=== PATIENT | male | born 1995 | race Caucasian/White ===

== ENCOUNTER 2017-12-12 12:37 | Emergency (ER) | payer MEDICAID ==
[~2017-12-12] VITALS: Ht 162.6 cm; Wt 72.7 kg
[~2017-12-12 12:37] MED LIST: NO HOME MEDS
[2017-12-12] MEDS ORDERED: AMOX500C2 PO (13:04)
[2017-12-12 13:19] VITALS: BP 124/67
== END 2017-12-12 13:20 | disposition home or self-care (01) ==
LOC: ER 12:37
DX: K08.89 Other specified disorders of teeth and supporting structures (principal); F15.90 Other stimulant use, unspecified, uncomplicated; F11.90 Opioid use, unspecified, uncomplicated; Z79.899 Other long term (current) drug therapy
CPT/HCPCS: 99283

== ENCOUNTER 2018-01-13 21:10 | Emergency (ER) | payer MEDICAID ==
[~2018-01-13] VITALS: Ht 167.6 cm; Wt 72.7 kg
[2018-01-13 21:15] VITALS: BP 129/71
[2018-01-13] MEDS ORDERED: CefTRIAXone 250MG IM Kit w/LIDOcaine IM ONE (22:25)
[2018-01-13] MEDS ORDERED: azithromycin 250mg tablet PO ONE (22:25)
== END 2018-01-13 23:33 | disposition home or self-care (01) ==
LOC: ER 21:10
DX: A64 Unspecified sexually transmitted disease (principal); F15.90 Other stimulant use, unspecified, uncomplicated; F11.90 Opioid use, unspecified, uncomplicated; Z79.899 Other long term (current) drug therapy
CPT/HCPCS: 96372; 99283; J0696

== ENCOUNTER 2019-02-16 05:31 | Emergency (ER) | payer MEDICAID, OTHER ==
[~2019-02-16] VITALS: Ht 162.6 cm; Wt 77.3 kg
[2019-02-16 05:34] VITALS: BP 147/94
[2019-02-16] MEDS ORDERED: IBUP-1984 PO (06:08)
[2019-02-16] MEDS ORDERED: PENI500T2 PO (06:08)
[2019-02-16] MEDS ORDERED: ibuprofen tablet 400 MG TABLET PO ONE (06:10)
[2019-02-16] MEDS ORDERED: AMOX-422 PO (21:05)
[2019-02-16] MEDS ORDERED: HYDR-4353 PO (21:05)
== END 2019-02-16 06:21 | disposition home or self-care (01) ==
LOC: ER 05:32
DX: K02.9 Dental caries, unspecified (principal); F15.90 Other stimulant use, unspecified, uncomplicated; F11.90 Opioid use, unspecified, uncomplicated; Z79.2 Long term (current) use of antibiotics; Z79.899 Other long term (current) drug therapy
CPT/HCPCS: 99283

== ENCOUNTER 2019-02-16 19:49 | Emergency (ER) | payer MEDICAID, OTHER ==
[~2019-02-16] VITALS: Ht 162.6 cm; Wt 77.3 kg
[~2019-02-16 19:49] MED LIST changes: +IBUP-1984 PO; +PENI500T2 PO
[2019-02-16 19:55] VITALS: BP 148/101
[2019-02-16] MEDS ORDERED: naproxen 500mg tablet PO ONE (21:05)
[2019-02-16] MEDS ORDERED: HYDR-4353 PO (21:05)
[2019-02-16] MEDS ORDERED: LIDOcaine 1% w/EPI 1:200,000 injection 10mL vial IM ONE (21:05)
[2019-02-16] MEDS ORDERED: amox tr/potassium clavulanate 875/125mg TAB PO ONE (21:05)
[2019-02-16] MEDS ORDERED: AMOX-422 PO (21:05)
[2019-02-16] MEDS ORDERED: HYDROcodone/acetaminophen 10/325mg tab PO ONE (21:05)
[2019-02-16] MEDS ORDERED: LIDOcaine 1% W/epiNEPHrine 1:100,000 20ml vial IJ ONE (21:10)
--- NOTE | 2019-02-16 22:32 | NUR ---
DR AZUL AT BEDSIDE TO I&D
== END 2019-02-16 22:59 | disposition home or self-care (01) ==
LOC: ER 19:49
DX: K04.7 Periapical abscess without sinus (principal); K02.9 Dental caries, unspecified; F15.90 Other stimulant use, unspecified, uncomplicated; F11.90 Opioid use, unspecified, uncomplicated; Z72.0 Tobacco use; Z79.2 Long term (current) use of antibiotics; Z79.899 Other long term (current) drug therapy
CPT/HCPCS: 41800; 99284

== ENCOUNTER 2019-05-24 03:16 | Emergency (ER) | payer MEDICAID, OTHER ==
[~2019-05-24] VITALS: Ht 162.6 cm; Wt 81.8 kg
[~2019-05-24 03:16] MED LIST changes: -IBUP-1984 PO; -PENI500T2 PO
[2019-05-24 03:18] VITALS: BP 122/104
[2019-05-24] MEDS ORDERED: ondansetron 4mg rapidly disintigrating tab PO ONE (03:30)
== END 2019-05-24 03:48 | disposition home or self-care (01) ==
LOC: ER 03:16
DX: F10.129 Alcohol abuse with intoxication, unspecified (principal); G40.909 Epilepsy, unspecified, not intractable, without status epilepticus; F17.200 Nicotine dependence, unspecified, uncomplicated; F15.90 Other stimulant use, unspecified, uncomplicated; F11.90 Opioid use, unspecified, uncomplicated; Y90.0 Blood alcohol level of less than 20 mg/100 ml
CPT/HCPCS: 93005; 99283

== ENCOUNTER 2019-06-14 19:25 | Emergency (ER) | payer MEDICAID ==
[~2019-06-14] VITALS: Ht 162.6 cm; Wt 77.3 kg
[2019-06-14] MEDS ORDERED: azithromycin 250mg tablet PO ONE (21:40)
[2019-06-14] MEDS ORDERED: albuterol 2.5 MG/3 ML nebule NEB ONE (22:05)
[2019-06-14] MEDS ORDERED: acetaminophen 325mg tablet PO ONE (22:10)
--- NOTE | 2019-06-14 22:10 | NUR ---
PT REPORTS "BAD" HEADACHE, 10/10 PAIN. MD OLMOS MADE AWARE AND VERBAL ORDER RECIEVED FOR 650 TYLENOL X1 DOSE NOW.
[2019-06-14] MEDS ORDERED: ROBCFL PO (22:37)
[2019-06-14] MEDS ORDERED: AZIT250T PO (22:37)
[2019-06-14] MEDS ORDERED: PRED20TA PO (22:37)
[2019-06-14] MEDS ORDERED: ALBU18HF2 INH (22:37)
[2019-06-14] MEDS ORDERED: predniSONE 20 mg tablet PO ONE (22:40)
[2019-06-14 22:52] VITALS: BP 130/90
== END 2019-06-14 22:54 | disposition home or self-care (01) ==
LOC: ER 19:25
DX: J45.909 Unspecified asthma, uncomplicated (principal); J20.9 Acute bronchitis, unspecified; J11.1 Influenza due to unidentified influenza virus with other respiratory manifestations; F17.200 Nicotine dependence, unspecified, uncomplicated
CPT/HCPCS: 71045; 94640; 99284; J7512; 94760

== ENCOUNTER 2019-07-08 14:33 | Emergency (ER) | payer MEDICAID ==
[~2019-07-08] VITALS: Ht 162.6 cm; Wt 75.0 kg
[~2019-07-08 14:33] MED LIST changes: +ALBU18HF2 INH; +ROBCFL PO
[2019-07-08 14:39] VITALS: BP 148/82
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
[2019-07-08] MEDS ORDERED: AMOX-422 PO (15:34)
--- NOTE | 2019-07-08 15:45 | NUR ---
wound dressed with antibiotic ointment, 2x2 guaze and coban, pt filomena well
== END 2019-07-08 15:48 | disposition home or self-care (01) ==
LOC: ER 14:33
DX: S51.831A Puncture wound without foreign body of right forearm, initial encounter (principal); F10.129 Alcohol abuse with intoxication, unspecified; Z79.899 Other long term (current) drug therapy; W54.0XXA Bitten by dog, initial encounter; Y93.89 Activity, other specified; Y92.89 Other specified places as the place of occurrence of the external cause; Y99.8 Other external cause status; Y90.9 Presence of alcohol in blood, level not specified
CPT/HCPCS: 99283